=== PATIENT | female | born 1965 | race African-American/Black ===

== ENCOUNTER 2020-07-18 16:52 | Emergency (ER) | payer OTHER ==
[~2020-07-18] VITALS: Ht 157.5 cm; Wt 91.2 kg
[2020-07-18] MEDS ORDERED: PEPCID40 MG PO (17:58)
[2020-07-18] MEDS ORDERED: NAPROXEN250 MG PO (17:58)
[2020-07-18] MEDS ORDERED: ULTRAM 50MG TAB50 MG PO (17:58)
[2020-07-18 18:43] VITALS: BP 127/92
== END 2020-07-18 18:45 | disposition home or self-care (01) ==
LOC: ER 16:52
DX: S93.402A Sprain of unspecified ligament of left ankle, initial encounter (principal); I10 Essential (primary) hypertension; E78.5 Hyperlipidemia, unspecified; X50.1XXA Overexertion from prolonged static or awkward postures, initial encounter; Y93.89 Activity, other specified; Y92.89 Other specified places as the place of occurrence of the external cause; Y99.8 Other external cause status